=== PATIENT | male | born 1995 | race Caucasian/White ===

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

== ENCOUNTER 2019-06-05 10:28 | Emergency (ER) | payer SELFPAY ==
--- NOTE | 2019-06-05 12:07 | Emergency Department Report ---
Blank Doc - Documentation Documentation: 23-year-old male that presents with right finger pain. This initial assessment/diagnostic orders/clinical plan/treatment(s) is/are subject to change based on patient's health status, clinical progression and re- assessment by fellow clinical providers in the ED. Further treatment and workup at subsequent clinical providers discretion. Patient/guardians urged not to elope from the ED as their condition may be serious if not clinically assessed and managed. Initial orders include: 1- Patient sent to [facility] for further evaluation and treatment 2- xrays
[2019-06-05 12:08] VITALS: BP 153/92
--- NOTE | 2019-06-05 12:35 | XRay Report ---
RIGHT THUMB ONE VIEW INDICATION / CLINICAL INFORMATION: Right thumb pain. Possible injury last night while working. COMPARISON: None available. FINDINGS: BONES and JOINT(S): No acute fracture or subluxation. No significant arthritis. SOFT TISSUES: No significant abnormality. ADDITIONAL FINDINGS: None. IMPRESSION: No acute abnormality of the right thumb on this limited single view. Signer Name: Jac Menjivar MD Signed: 06/05/2019 12:30 PM Workstation Name: [id number]
--- NOTE | 2019-06-05 12:59 | Emergency Department Report ---
Chief Complaint: Extremity Injury, Upper Stated Complaint: RT THUMB SWOLLEN Time Seen by Provider: 06/05/19 12:06 - HPI History of Present Illness: 23-year-old male presents to the emergency room for right thumb pain and swelling that he noticed this morning when he woke up. Patient reports he is not aware of any injury. Patient has not taken anything for pain. - Exam Vital Signs: Vital Signs 06/05/19 12:06 Temperature 98.3 F Pulse Rate 68 Respiratory 18 Rate Blood Pressure 153/92 O2 Sat by Pulse 99 Oximetry Physical Exam: Patient is alert and oriented x3 no acute distress nontoxic in appearance patient is sitting comfortably texting on his phone. Right hand thumb minimum swelling mild erythematous full range of motion. No open wound no purulent discharge. MSE screening note: Focused history and physical exam performed. Due to findings the following was ordered: 23-year-old male presents to the emergency room for right thumb pain and swelling that he noticed this morning when he woke up. Patient reports he is not aware of any injury. Patient has not taken anything for pain. X-ray of finger is negative for any acute abnormalities. ED Medical Decision Making - Radiology Data Radiology results: report reviewed Patient: LOVELY ARREDONDO MR#: [id number] : 1995 Acct:[id number] Age/Sex: 23 / M ADM Date: 06/05/19 Loc: ED Attending Dr: Ordering Physician: FRANCIS MAZA NP Date of Service: 06/05/19 Procedure(s): XR finger(s) 2+V RT Accession Number(s): [id number] cc: FRANCIS MAZA NP Fluoro Time In Minutes: RIGHT THUMB ONE VIEW INDICATION / CLINICAL INFORMATION: Right thumb pain. Possible injury last night while working. COMPARISON: None available. FINDINGS: BONES and JOINT(S): No acute fracture or subluxation. No significant arthritis. SOFT TISSUES: No significant abnormality. ADDITIONAL FINDINGS: None. IMPRESSION: No acute abnormality of the right thumb on this limited single view. Signer Name: Jac Menjivar MD Signed: 06/05/2019 12:30 PM Workstation Name: [id number] Transcribed By: TOSIN Dictated By: Jac Menjivar MD Electronically Authenticated By: Jac Menjivar MD Signed Date/Time: 06/05/19 1230 ED Disposition for MSE Disposition: Z-07 MED SCREENING EXAM-LEFT Is pt being admited?: No Does the pt Need Aspirin: No Condition: Stable Additional Instructions: Please take Tylenol or ibuprofen as needed for pain management. Soak your thumb in warm Epson salt. X-ray was negative for any fractures. Forms: Work/School Release Form(ED)
== END 2019-06-05 14:14 | disposition left against medical advice (07) ==
LOC: ED 10:28
DX: M79.644 Pain in right finger(s) (principal); M79.89 Other specified soft tissue disorders
CPT/HCPCS: 99283